=== PATIENT | male | born 1980 | race Two or more races ===

== ENCOUNTER 2018-05-13 08:47 | Emergency (ER) | payer SELFPAY ==
[2018-05-13 09:12] VITALS: BP 120/81; PULSE 69; TEMP 98; BMI 29.1
[2018-05-13] MEDS ORDERED: KETOROLAC TROMETHAMINE 60 MG/2 ML VIAL IM ONE (09:48)
--- NOTE | 2018-05-13 09:49 | PDOC ---
History of Present Illness - General Chief Complaint: Back Pain Stated Complaint: BACK PAIN Time Seen by Provider: 05/13/18 09:13 History Source: Patient Exam Limitations: No Limitations - History of Present Illness Initial Comments: 05/13/18 09:56 Patient is a 37-year-old male with no past medical history who presents to the emergency Department with right-sided low back pain. Patient states he was lifting heavy trees at work yesterday when he states he twisted his back. He felt a pulling sensation when this happened. The pain started shortly thereafter. Denies numbness and tingling to the extremities, weakness to the extremities, fevers, nausea, vomiting and diarrhea, saddle anesthesia and bladder/bowel incontinence. Past History - Travel Traveled outside of the country in the last 30 days: No Close contact w/someone who was outside of country & ill: No - Past Medical History Allergies/Adverse Reactions: Allergies Allergy/AdvReac Type Severity Reaction Status Date / Time No Known Allergies Allergy Verified 05/13/18 09:08 Home Medications: Ambulatory Orders Cyclobenzaprine HCl [Flexeril -] 10 mg PO HS #10 tablet 05/13/18 Ibuprofen 800 mg PO TID #30 tablet 05/13/18 Asthma: Yes COPD: No - Suicide/Smoking/Psychosocial Hx Smoking History: Never smoked Have you smoked in the past 12 months: No Information on smoking cessation initiated: No Hx Alcohol Use: No Drug/Substance Use Hx: No Substance Use Type: Alcohol Review of Systems - Review of Systems Able to Perform ROS?: Yes Comments:: 05/13/18 09:54 CONSTITUTIONAL: Absent: fever, chills, diaphoresis, generalized weakness, malaise, loss of appetite GASTROINTESTINAL: Absent: abdominal pain, abdominal distension, nausea, vomiting, diarrhea, constipation, melena, hematochezia GENITOURINARY: Absent: dysuria, frequency, urgency, hesitancy, hematuria, flank pain, genital pain MUSCULOSKELETAL: Present: low back pain Absent: arthralgia, joint swelling SKIN: Absent: rash, itching, pallor NEUROLOGIC: Absent: headache, focal weakness or paresthesias, dizziness, unsteady gait, seizure, mental status changes, bladder or bowel incontinence PSYCHIATRIC: Absent: anxiety, depression, suicidal or homicidal ideation, hallucinations. Is the patient limited French proficient: No *Physical Exam - Vital Signs Last Vital Signs Temp Pulse Resp BP Pulse Ox 98 F 69 16 120/81 100 05/13/18 09:00 05/13/18 09:00 05/13/18 09:00 05/13/18 09:00 05/13/18 09:00 - Physical Exam Comments: 05/13/18 09:54 GENERAL: Well developed, well nourished. Awake and alert. No acute distress. NECK: Supple. Full ROM. No JVD. Carotid pulses 2+ and symmetric, without bruits. No thyromegaly. No lymphadenopathy. MUSCULOSKELETAL TTP of the R paraspinous muscles at the level of L4-S1 with palpable spasm. (-) straight leg test b/l. Normal range of motion at all joints. No bony deformities or tenderness. No CVA tenderness. EXTREMITIES: No cyanosis. No clubbing. No edema. No calf tenderness. SKIN: Warm and dry. Normal capillary refill. No rashes. No jaundice. NEUROLOGICAL: Alert, awake, appropriate. Cranial nerves 2-12 intact. No deficits to light touch and temperature in face, upper extremities and lower extremities. No motor deficits in the in face, upper extremities and lower extremities. Normoreflexic in the upper and lower extremities. Normal speech. Toes are down- going bilaterally. Gait is normal without ataxia. PSYCHIATRIC: Cooperative. Good eye contact. Appropriate mood and affect. Medical Decision Making - Medical Decision Making 05/13/18 09:55 Pt is a 37 y/o M with no PMH who presents to the ED with R sided low back pain s /p lifting heavy trees at work. -Pt with TTP of the R paraspinous muscles, L4-S1, with palpable knot consistent with muscle spasm. (-) straight leg raise testing b/l. -No trauma, or fever No saddle anesthesia or bladder/bowel incontinence. No CVA tenderness. -Pt is neurologically intact on exam with no focal findings. -Toradol given with relief of symptoms -DC home. Ortho follow up given for if symptoms do not resolve. -I discussed the physical exam findings, ancillary test results and final diagnoses with the patient. I answered all of the patient's questions. The patient was satisfied with the care received and felt comfortable with the discharge plan and treatment plan. The Patient agrees to follow up with the primary care physician/specialist within 24-72 hours. Return precautions were given. *DC/Admit/Observation/Transfer Diagnosis at time of Disposition: Low back pain Qualifiers: Chronicity: acute Back pain laterality: right Sciatica presence: without sciatica Qualified Code(s): M54.5 - Low back pain - Discharge Dispostion Disposition: HOME Condition at time of disposition: Stable Decision to Admit order: No - Prescriptions Prescriptions: Cyclobenzaprine HCl [Flexeril -] 10 mg PO HS #10 tablet Ibuprofen 800 mg PO TID #30 tablet - Referrals Referrals: Oliverio Taylor MD [Staff Physician] - - Patient Instructions Printed Discharge Instructions: DI for Low Back Pain Additional Instructions: You have low back pain due to a muscle spasm. Please take ibuprofen 800 mg 3 times a day not to exceed 3000 mg a day. You were also prescribed Flexeril. Please take this medication every 8 hours for the first day. Then take the medication before you go to bed. Do not drive after taking this medication as it may make you sleepy. You may use warm compresses on your back to help with her symptoms. Please follow-up with your primary care doctor. If your symptoms do not resolve in 3-5 days, follow-up with orthopedics. A referral has been provided for you. Return to the emergency department if you have worsening back pain, bladder or bowel incontinence, numbness and tingling in her legs, changes in the way you walk, or any new or worsening symptoms. Tiene dolor lumbar debido a un espasmo muscular. [place] ibuprofeno 800 mg 3 veces al da sin exceder los 3000 mg al da. Tambin te recetaron Flexeril. [place] osmin medicamento cada 8 horas sherri el primer da. Luego tome el medicamento antes de irse a la cama. No maneje despus de anmol osmin medicamento, ya que puede causarle sueo. Puede usar compresas tibias en la espalda para ayudar con jayne sntomas. Por favor pradip un seguimiento con ceballos mdico de atencin primaria. Si jayne sntomas no se resuelven en 3-5 flores, pradip un seguimiento con ortopedia. Se fox proporcionado chucky referencia para usted. Regrese a la ruthann de emergencias si tiene empeoramiento del dolor de espalda, incontinencia de la vejiga o el intestino, entumecimiento y hormigueo en las piernas, cambios en la forma en que camina, o cualquier sntoma nuevo o que empeora. Print Language: FILIPINO - Post Discharge Activity Forms/Work/School Notes: Back to Work
[2018-05-13] MEDS ORDERED: KETOROLAC TROMETHAMINE 60 MG/2 ML VIAL ONE (09:52)
== END 2018-05-13 10:10 | disposition home or self-care (01) ==
LOC: JERFT 08:47
PROC: 3E0233Z Introduction of Anti-inflammatory into Muscle, Percutaneous Approach (ICD-10-PCS; principal; 2018-05-13)
DX: M54.5 Low back pain (principal); J45.909 Unspecified asthma, uncomplicated
CPT/HCPCS: 99281-25